=== PATIENT | female | born 1945 | race Caucasian/White ===

== ENCOUNTER → 2017-07-19 08:29 | Outpatient (CLI) | payer OTHER, SELFPAY ==
[2017-07-19 09:53] LABS: Add Manual Diff / Slide Review NO; Basophils Percent Auto 0.7 % (0-2); Eosinophils Percent Auto 2.2 % (2-4); Hematocrit 38.5 % (36-46); Hemoglobin 13.1 g/dL (12.0-16.0); Lymphocytes Percent Auto 20.4 % (25-40); Mean Corpuscular HGB Conc 34.1 % (30-36); Mean Corpuscular Hemoglobin 33.5 PG (26-34); Mean Corpuscular Volume 98.2 fL (80-100); Monocytes Percent Auto 9.3 % (3-14); Neutrophils Absolute Auto 2400 /uL (3000-5900); Neutrophils Percent Auto 67.4 % (50-75); Platelet Count 166 X10^3/uL (150-400); Red Blood Cell Count 3.92 X10^6/uL (4.0-5.2); Red Cell Distribution Width 13.2 % (11.6-14.8); White Blood Cell Count 3.6 X10^3/uL (4.5-11.0)
[2017-07-19 11:30] LABS: Cholesterol 237 mg/dL (140-199); HDL Cholesterol 77 mg/dL (40-60); LDL Cholesterol Calculated 142 mg/dL (<100); Triglycerides 91 mg/dL (35-150)
[2017-07-19 11:56] LABS: TSH w/ Reflex to FT4 0.88 uIU/mL (0.47-4.68)
== END ==
PROVIDERS: Family Provider Family Medicine; PCP Family Medicine; Visit Provider Family Medicine
DX: E78.5 Hyperlipidemia, unspecified (principal)
CPT/HCPCS: 36415; 80061; 84443; 85025

== ENCOUNTER → 2017-09-21 10:56 | Outpatient (CLI) | payer OTHER, SELFPAY ==
[2017-09-21 11:15] LABS: Add Manual Diff / Slide Review NO; Basophils Percent Auto 0.8 % (0-2); Eosinophils Percent Auto 1.6 % (2-4); Hematocrit 41.1 % (36-46); Hemoglobin 14.3 g/dL (12.0-16.0); Lymphocytes Percent Auto 22.6 % (25-40); Mean Corpuscular HGB Conc 34.7 % (30-36); Monocytes Percent Auto 10.4 % (3-14); Neutrophils Absolute Auto 2600 /uL (3000-5900); Neutrophils Percent Auto 64.6 % (50-75); Platelet Count 202 X10^3/uL (150-400); Red Cell Distribution Width 12.9 % (11.6-14.8)
[2017-09-21 11:27] LABS: Alanine Aminotransferase 39 IU/L (9-52); Albumin 4.8 g/dL (3.5-5.0); Albumin Globulin Ratio 1.8 (1.0-2.8); Alkaline Phosphatase 58 U/L (38-126); Aspartate Aminotransferase 36 IU/L (14-36); BUN Creatinine Ratio 23.8 (6-22); Bilirubin Total 0.7 mg/dL (0.2-1.3); Blood Urea Nitrogen 19 mg/dL (7-17); Calcium 9.8 mg/dL (8.4-10.2); Carbon Dioxide 27 mmol/L (22-32); Chloride 102 mmol/L (98-107); Estimated Glomerular Filt Rate > 60.0 mL/min (>60); Globulin 2.6 g/dL (1.7-4.1); Glucose 95 mg/dL (80-110); HEMOLYSIS < 15 (0-50); Lactate Dehydrogenase 413 U/L (313-618); Potassium 4.5 mmol/L (3.4-5.1); Sodium 141 mmol/L (137-145); Total Protein 7.4 g/dL (6.3-8.2)
== END ==
PROVIDERS: Family Provider Family Medicine; PCP Family Medicine; Visit Provider Nurse Practitioner Gerontology
DX: C91.10 Chronic lymphocytic leukemia of B-cell type not having achieved remission (principal)
CPT/HCPCS: 36415; 80053; 83615; 85025

== ENCOUNTER 2017-12-19 10:28 | Day surgery (SDC) | payer OTHER, SELFPAY ==
[2017-12-19] VITALS (7 sets, daily range): BP systolic 137–160; BP diastolic 71–92; PULSE 60–71; RESP 12–16; TEMP 36.1–36.6; O2SAT 97–100; BMI 24.7
--- NOTE | 2017-12-19 | PATH_ITS ---
[facility] Accession Number: [id number] . 01 Material submitted: . POLYP AT 40 . 02 Diagnosis: Colon Polyp at 40 cm: Tubular adenoma. MRV/12/21/2017 . 02 Electronically signed: . Sumeet Rossi MD, PhD, Pathologist NPI- [id number] . 01 Gross description: . POLYP AT 40: Received in formalin is 1 fragment(s) of julien, soft tissue measuring 0.5 x 0.3 x 0.3 cm submitted entirely in 1 cassette(s) /CKI /CKI . 02 Pathologist provided ICD-10: D12.6 . 02 CPT . 540540 Specimen Comment: A duplicate report has been generated due to demographic updates. Performed at: 01 [facility] [address] [id number] MD Francis Walters MD Phone: [phone] Performed at: 02 [facility] [address] [place], [place] [id number] MD Ramiro Crockett MD Phone: [phone]
[2017-12-19] MEDS: SODIUM CHLORIDE 0.9% 1,000 ML 84 ML IV (10:45)
--- NOTE | 2017-12-19 12:18 | PM.HP.1 ---
History of Present Illness Date Patient Seen: 12/19/17 Chief complaint: [id number] SCREENING COLONOSCOPY Narrative: Here for interval colon cancer screening colonoscopy. Previous colonoscopy 10 yrs ago. No polyps seen, no problems with anesthesia. Completed prep without any difficulty. No complaints of abdominal pain, bloating, chronic constipation, change in caliber of stools, melena, blood per rectum. Father had colon cancer. Patient History Family & Social History Social History: household members none Tobacco & Substance use: Smoking Status Former smoker alcohol intake current Meds Home Medications Medication Instructions Recorded Confirmed Type CA PANTOTHENATE/FOLIC ACID/VIT 1 tab PO QDAY #0 09/28/12 12/19/17 History (MULTIVITAMIN) Fish Oil (Fish Oil 500 MG Softgel) 500 mg PO QDAY #0 09/28/12 12/19/17 History [B COMPLEX] 1 tab PO Q DAY #0 09/28/12 09/28/17 History [GREEN TEA EXTRACT] 500 iu Q DAY #0 09/28/12 09/28/17 History [BITTERS] 1 tab PO Q DAY #0 05/04/16 07/25/17 History [MUSHROOM SUPPLEMENT] 1 tab PO Q DAY #0 05/04/16 07/25/17 History biotin 5 mg PO Q DAY #0 04/14/17 12/19/17 History varicella-zoster glycoE vacc-[id number] 0.5 ml IM ONCE #1 each 07/25/17 09/28/17 Rx adj(PF) 50 mcg/0.5 mL IM susp, kit Tumeric 1 tab PO QAM 09/28/17 09/28/17 History cholecalciferol (vitamin D3) 4,000 unit PO DAILY 09/28/17 12/19/17 History [Vitamin D3] cranberry juice PO 09/28/17 History lutein 6 mg PO DAILY 09/28/17 09/28/17 History bupropion HCl [Wellbutrin SR] 100 mg PO DAILY 12/19/17 12/19/17 History Allergies Allergy/AdvReac Type Severity Reaction Status Date / Time fig AdvReac Mild Nausea Uncoded 09/28/17 12:47 Review of Systems Review of Systems All systems reviewed & are unremarkable except as noted in HPI and below Exam Vital Signs (past 8 hours): - 12/19/17 10:48 Temperature 97.0 F L Pulse Rate 71 Respiratory Rate 16 Blood Pressure 142/77 H Pulse Oximetry 97 Oxygen Delivery Method Room Air Const General: cooperative, healthy appearing, comfortable and well developed HENSC Head: normal to inspection Eyes Sclera: sclerae normal Neck Neck: supple Chest Chest: normal inspection of the chest Resp Effort & Inspection: normal respiratory effort Cardio Rate: regular rate GI Inspection: normal to inspection Palpation: soft Skin General: no rashes or lesions noted Neuro General: alert, awake and moves all extremities Extrem General: normal to inspection Psych Appearance: grossly normal and well tawanampt Assessment & Plan Plan: Assessment/Plan Narrative: Colon cancer screening colonoscopy Time Spent With Patient Time with patient: 25 - 35 minutes
--- NOTE | 2017-12-19 12:23 | P.HP_ITS ---
History of Present Illness Date Patient Seen: 12/19/17 Chief complaint: [id number] SCREENING COLONOSCOPY Narrative: Here for interval colon cancer screening colonoscopy. Previous colonoscopy 10 yrs ago. No polyps seen, no problems with anesthesia. Completed prep without any difficulty. No complaints of abdominal pain, bloating, chronic constipation, change in caliber of stools, melena, blood per rectum. Father had colon cancer. Patient History Family & Social History Social History: household members none Tobacco & Substance use: Smoking Status Former smoker alcohol intake current Meds Home Medications Medication Instructions Recorded Confirmed Type CA PANTOTHENATE/FOLIC ACID/VIT 1 tab PO QDAY #0 09/28/12 12/19/17 History (MULTIVITAMIN) Fish Oil (Fish Oil 500 MG Softgel) 500 mg PO QDAY #0 09/28/12 12/19/17 History [B COMPLEX] 1 tab PO Q DAY #0 09/28/12 09/28/17 History [GREEN TEA EXTRACT] 500 iu Q DAY #0 09/28/12 09/28/17 History [BITTERS] 1 tab PO Q DAY #0 05/04/16 07/25/17 History [MUSHROOM SUPPLEMENT] 1 tab PO Q DAY #0 05/04/16 07/25/17 History biotin 5 mg PO Q DAY #0 04/14/17 12/19/17 History varicella-zoster glycoE vacc-[id number] 0.5 ml IM ONCE #1 each 07/25/17 09/28/17 Rx adj(PF) 50 mcg/0.5 mL IM susp, kit Tumeric 1 tab PO QAM 09/28/17 09/28/17 History cholecalciferol (vitamin D3) 4,000 unit PO DAILY 09/28/17 12/19/17 History [Vitamin D3] cranberry juice PO 09/28/17 History lutein 6 mg PO DAILY 09/28/17 09/28/17 History bupropion HCl [Wellbutrin SR] 100 mg PO DAILY 12/19/17 12/19/17 History Allergies Allergy/AdvReac Type Severity Reaction Status Date / Time fig AdvReac Mild Nausea Uncoded 09/28/17 12:47 Review of Systems Review of Systems All systems reviewed & are unremarkable except as noted in HPI and below Exam Vital Signs (past 8 hours): - 12/19/17 10:48 Temperature 97.0 F L Pulse Rate 71 Respiratory Rate 16 Blood Pressure 142/77 H Pulse Oximetry 97 Oxygen Delivery Method Room Air Const General: cooperative, healthy appearing, comfortable and well developed HENNC Head: normal to inspection Eyes Sclera: sclerae normal Neck Neck: supple Chest Chest: normal inspection of the chest Resp Effort & Inspection: normal respiratory effort Cardio Rate: regular rate GI Inspection: normal to inspection Palpation: soft Skin General: no rashes or lesions noted Neuro General: alert, awake and moves all extremities Extrem General: normal to inspection Psych Appearance: grossly normal and well tawanampt Assessment & Plan Plan: Assessment/Plan Narrative: Colon cancer screening colonoscopy Time Spent With Patient Time with patient: 25 - 35 minutes
[2017-12-19] MEDS: diphenhydrAMINE 50 MG/ML VIAL IV (12:56)
[2017-12-19] MEDS: fentaNYL 250 MCG/5 ML INJ IV (12:57)
[2017-12-19] MEDS: MIDAZOLAM 5 MG/5 ML VIAL IV (12:58)
--- NOTE | 2017-12-19 13:21 | P.OP.ENDO_ITS ---
Operative Date/Time/Diagnoses Date of procedure: 12/19/17 Pre-op diagnosis: Colon Cancer Screening Post-op diagnosis: same Procedure & Clinicians Study performed: Colonoscopy with polypectomy Indications: Colon cancer screening Surgeon: Tesfaye Cat Procedure Notes SCOAP/Timeout: performed Procedure in detail: Patient taken from preoperative area to endoscopy suite with adequate iv access on guerny. Timeout was performed. IV sedation sedation was titrated throughout the case while patient was continuously monitored. Inspection of anal orifice revealed no lesions. Digital exam failed to palpate any lesions. A well lubricated Fuji colonoscope was gently introduced through the anus and advanced to the cecum using the dither-torque technique. Confirmation of reaching the cecum was acheived by identifying the appendiceal orifice and ileocecal valve. A raised polyp was identified at 40cm in distal sigmoid colon and polypectomy was performed with biopsy forcepts. Retroflexion of the endoscope in lower third of rectum could not be performed due to inability for the rectum to retain insufflation. Patient tolerated procedure well and was transferred to PACU in stable condition. Recommend high fiber diet, metamucil supplementation daily, follow up in surgical clinic regarding polyp pathology results. Repeat interval colon cancer screening in 5 years or sooner if indicated by pathology. Scope withdrawal time: 9 minutes Sedation minutes: 35 Findings: polyp (at 40cm, distal sigmoid colon) Specimen(s): none sent (colon polyp) Complications: none Recommendations: Colonscopy in 5 years Follow up: weeks (1-2 weeks to review polyp pathology results in surgical clinic ) Disposition: PACU
--- NOTE | 2017-12-19 13:27 | SUR.PHASEI ---
Unifocal PVCs intermittently seen.
--- NOTE | 2017-12-19 14:39 | SUR.PHASEII ---
pt slow to wake up, friend at bedside d/c instructions discussed with both, both voiced an understanding, pt dressed when ready and left when ready and left in stable condition.
== END 2017-12-19 14:25 | disposition home or self-care (01) ==
PROVIDERS: Family Provider Family Medicine; PCP Family Medicine; Visit Provider Surgery
PROC: 0DJD8ZZ Inspection of Lower Intestinal Tract, Via Natural or Artificial Opening Endoscopic (ICD-10-PCS; CPT 45378; principal; 2017-12-19 11:45)
DX: Z12.11 Encounter for screening for malignant neoplasm of colon (principal); Z87.891 Personal history of nicotine dependence; D12.6 Benign neoplasm of colon, unspecified
CPT/HCPCS: 45380; 99152; 99153; J1200; J2250; J3010

== ENCOUNTER → 2018-04-19 09:01 | Outpatient (CLI) | payer OTHER, SELFPAY ==
[2018-04-19 10:09] LABS: Add Manual Diff / Slide Review NO; Basophils Absolute Auto 0 /uL (0-100); Basophils Percent Auto 0.5 % (0-2); Eosinophils Absolute Auto 100 /uL (0-450); Hematocrit 42.8 % (36-46); Hemoglobin 14.2 g/dL (12.0-16.0); Lymphocytes Absolute Auto 700 /uL (1100-4500); Lymphocytes Percent Auto 16.3 % (25-40); Mean Corpuscular HGB Conc 33.1 % (30-36); Mean Corpuscular Hemoglobin 32.1 PG (26-34); Monocytes Absolute Auto 400 /uL (0-900); Neutrophils Absolute Auto 3100 /uL (1500-7000); Neutrophils Percent Auto 72.2 % (50-75); Platelet Count 212 X10^3/uL (150-400); Red Blood Cell Count 4.41 X10^6/uL (4.0-5.2); Red Cell Distribution Width 13.3 % (11.6-14.8); White Blood Cell Count 4.3 X10^3/uL (4.5-11.0)
[2018-04-19 10:33] LABS: Alanine Aminotransferase 44 IU/L (9-52); Albumin 4.7 g/dL (3.5-5.0); Albumin Globulin Ratio 1.8 (1.0-2.8); Alkaline Phosphatase 60 U/L (38-126); Aspartate Aminotransferase 30 IU/L (14-36); BUN Creatinine Ratio 21.4 (6-22); Bilirubin Total 0.3 mg/dL (0.2-1.3); Blood Urea Nitrogen 15 mg/dL (7-17); Calcium 9.9 mg/dL (8.4-10.2); Carbon Dioxide 31 mmol/L (22-32); Chloride 101 mmol/L (98-107); Estimated Glomerular Filt Rate > 60.0 mL/min (>60); Globulin 2.6 g/dL (1.7-4.1); Glucose 58 mg/dL (80-110); HEMOLYSIS < 15 (0-50); Lactate Dehydrogenase 405 U/L (313-618); Potassium 4.5 mmol/L (3.4-5.1); Sodium 140 mmol/L (137-145); Total Protein 7.3 g/dL (6.3-8.2)
== END ==
PROVIDERS: Family Provider Family Medicine; PCP Family Medicine; Visit Provider Nurse Practitioner Gerontology
DX: C91.90 Lymphoid leukemia, unspecified not having achieved remission (principal)
CPT/HCPCS: 36415; 80053; 83615; 85025

== ENCOUNTER → 2018-07-20 07:25 | Outpatient (CLI) | payer OTHER, SELFPAY ==
[2018-07-20 08:33] LABS: Add Manual Diff / Slide Review NO; Basophils Absolute Auto 0 /uL (0-100); Basophils Percent Auto 0.8 % (0-2); Eosinophils Absolute Auto 100 /uL (0-450); Eosinophils Percent Auto 2.4 % (2-4); Hematocrit 41.8 % (36-46); Hemoglobin 14.1 g/dL (12.0-16.0); Lymphocytes Absolute Auto 800 /uL (1100-4500); Lymphocytes Percent Auto 20.2 % (25-40); Mean Corpuscular HGB Conc 33.8 % (30-36); Mean Corpuscular Hemoglobin 32.4 PG (26-34); Mean Corpuscular Volume 95.8 fL (80-100); Monocytes Absolute Auto 300 /uL (0-900); Monocytes Percent Auto 9.3 % (3-14); Neutrophils Absolute Auto 2500 /uL (1500-7000); Neutrophils Percent Auto 67.3 % (50-75); Platelet Count 181 X10^3/uL (150-400); Red Blood Cell Count 4.37 X10^6/uL (4.0-5.2); Red Cell Distribution Width 13.4 % (11.6-14.8); White Blood Cell Count 3.7 X10^3/uL (4.5-11.0)
[2018-07-20 08:50] LABS: Alanine Aminotransferase 31 IU/L (9-52); Albumin 4.4 g/dL (3.5-5.0); Albumin Globulin Ratio 1.6 (1.0-2.8); Alkaline Phosphatase 54 U/L (38-126); Aspartate Aminotransferase 36 IU/L (14-36); BUN Creatinine Ratio 27.5 (6-22); Bilirubin Total 0.4 mg/dL (0.2-1.3); Blood Urea Nitrogen 22 mg/dL (7-17); Calcium 9.4 mg/dL (8.4-10.2); Carbon Dioxide 32 mmol/L (22-32); Chloride 102 mmol/L (98-107); Cholesterol 248 mg/dL (140-199); Estimated Glomerular Filt Rate > 60.0 mL/min (>60); Globulin 2.8 g/dL (1.7-4.1); Glucose 91 mg/dL (80-110); HDL Cholesterol 76 mg/dL (40-60); HEMOLYSIS < 15 (0-50); LDL Cholesterol Calculated 154 mg/dL (<100); Potassium 4.1 mmol/L (3.4-5.1); Sodium 141 mmol/L (137-145); Total Protein 7.2 g/dL (6.3-8.2); Triglycerides 91 mg/dL (35-150)
[2018-07-20 09:16] LABS: TSH w/ Reflex to FT4 1.28 uIU/mL (0.47-4.68)
== END ==
PROVIDERS: PCP Family Medicine; Visit Provider Family Medicine
DX: C91.90 Lymphoid leukemia, unspecified not having achieved remission (principal); E78.5 Hyperlipidemia, unspecified; Z13.6 Encounter for screening for cardiovascular disorders
CPT/HCPCS: 36415; 80053; 80061; 84443; 85025

== ENCOUNTER → 2018-08-11 12:08 | Outpatient (CLI) | payer OTHER, SELFPAY ==
--- NOTE | 2018-08-11 | DI.MG.S_ITS ---
BILATERAL DIGITAL SCREENING MAMMOGRAM 3D/2D WITH CAD: 08/11/2018 CLINICAL: Routine screening. Family history of breast cancer. Comparison is made to exams dated: 01/26/2017 mammogram, 01/07/2016 mammogram, and 08/13/2014 mammogram - [facility]. The tissue of both breasts is heterogeneously dense. This may lower the sensitivity of mammography. Current study was also evaluated with a Computer Aided Detection (CAD) system. There is architectural distortion in the right breast at 11 o'clock middle depth. This is more prominent. No other significant masses, calcifications, or other findings are seen in either breast. IMPRESSION: INCOMPLETE: NEEDS ADDITIONAL IMAGING EVALUATION The architectural distortion in the right breast is indeterminate. Additional views with possible ultrasound are recommended. This exam was interpreted at Station ID: [id number]. NOTE: For mammograms, a report in lay terms will be sent to the patient. Approximately 15% of breast malignancies will not be visualized mammographically. In the management of a palpable breast mass, a negative mammogram must not discourage biopsy of a clinically suspicious lesion. Electronically Signed By: Love maciel/:08/11/2018 20:38:09 letter sent: Additional Imaging Needed ACR BI-RADS Category 0: Incomplete [id number]
== END ==
PROVIDERS: PCP Family Medicine; Visit Provider Family Medicine
DX: M85.80 Other specified disorders of bone density and structure, unspecified site (principal); M85.88 Other specified disorders of bone density and structure, other site; R92.8 Other abnormal and inconclusive findings on diagnostic imaging of breast; Z78.0 Asymptomatic menopausal state; Z12.31 Encounter for screening mammogram for malignant neoplasm of breast; Z80.3 Family history of malignant neoplasm of breast
CPT/HCPCS: 77063; 77067; 77080

== ENCOUNTER → 2018-08-31 13:18 | Outpatient (CLI) | payer OTHER, SELFPAY ==
--- NOTE | 2018-08-31 | DI.MG.S_ITS ---
UNILATERAL RIGHT DIGITAL DIAGNOSTIC MAMMOGRAM 3D/2D WITH ADDITIONAL VIEWS: 08/31/2018 CLINICAL: Additional evaluation requested from prior study. Comparison is made to exams dated: 08/11/2018 mammogram, 01/26/2017 mammogram, and 01/07/2016 mammogram - [facility]. The tissue of right breast is heterogeneously dense. This may lower the sensitivity of mammography. There is architectural distortion in the right breast at 11 o'clock middle depth. This is less prominent and decreased in size and possibly persists on today's additional views. No other significant masses or calcifications are seen in the breast. IMPRESSION: INCOMPLETE: NEEDS ADDITIONAL IMAGING EVALUATION The architectural distortion in the right breast is indeterminate. Further evaluation by sonogram is recommended which is scheduled to immediately follow this examination. This exam was interpreted at Station ID: [id number]. NOTE: For mammograms, a report in lay terms will be sent to the patient. Approximately 15% of breast malignancies will not be visualized mammographically. In the management of a palpable breast mass, a negative mammogram must not discourage biopsy of a clinically suspicious lesion. Electronically Signed By: Olaf Orosco M.D. aty/:08/31/2018 14:07:19 ACR BI-RADS Category 0: Incomplete [id number]
--- NOTE | 2018-08-31 13:19 | DI.US.S_ITS ---
ULTRASOUND OF RIGHT BREAST: 08/31/2018 CLINICAL: Patient returns today to evaluate an architectural distortion in the right breast. Comparison is made to exams dated: 08/31/2018 mammogram, 08/11/2018 mammogram, 01/26/2017 mammogram, and 01/07/2016 mammogram - [facility]. Real-time ultrasound of the right breast was performed. Iraheta scale images of the real-time examination were reviewed. No abnormalities were seen sonographically in the right breast. IMPRESSION: PROBABLY BENIGN There is no abnormality seen in the right breast to correspond with the possible area of subtle architectural distortion seen in the upper outer right breast. Mammographic appearance has been relatively stable. A follow-up right mammogram with possible ultrasound in 6 months is recommended to demonstrate stability. This exam was interpreted at Station ID: [id number]. Electronically Signed By: Olaf Orosco M.D. aty/:08/31/2018 15:29:33 letter sent: Followup Recommended Ultrasound BI-RADS: 3 Probably benign
== END ==
PROVIDERS: PCP Family Medicine; Visit Provider Family Medicine
DX: R92.8 Other abnormal and inconclusive findings on diagnostic imaging of breast (principal)
CPT/HCPCS: 76642; 77065; G0279

== ENCOUNTER → 2019-03-07 14:33 | Outpatient (CLI) | payer OTHER, SELFPAY ==
--- NOTE | 2019-03-07 | DI.MG.S_ITS ---
UNILATERAL RIGHT DIGITAL DIAGNOSTIC MAMMOGRAM 3D/2D SHORT-TERM FOLLOW-UP: 03/07/2019 CLINICAL: Patient returns for a 6 month follow up of the right breast. Comparison is made to exams dated: 08/31/2018 mammogram, 08/11/2018 mammogram, 01/26/2017 mammogram, 01/07/2016 mammogram, and 08/13/2014 mammogram - [facility]. The tissue of right breast is heterogeneously dense. This may lower the sensitivity of mammography. There is a stable area of architectural distortion in the right breast at 11 o'clock middle depth. This is not significantly changed over multiple prior studies. No new associated asymmetry. No other significant masses or calcifications are seen in the breast. IMPRESSION: The architectural distortion in the right breast is stable and therefore benign. There is no mammographic evidence of malignancy. Return to annual mammogram screening schedule is recommended. Findings and recommendations were conveyed to the patient at time of exam. This exam was interpreted at Station ID: [id number]. NOTE: For mammograms, a report in lay terms will be sent to the patient. Approximately 15% of breast malignancies will not be visualized mammographically. In the management of a palpable breast mass, a negative mammogram must not discourage biopsy of a clinically suspicious lesion. Electronically Signed By: Love maciel/:03/07/2019 15:40:58 letter sent: Normal Exam ACR BI-RADS Category 2: Benign Finding(s) 3342F
== END ==
PROVIDERS: PCP Family Medicine; Visit Provider Family Medicine
DX: R92.8 Other abnormal and inconclusive findings on diagnostic imaging of breast (principal)
CPT/HCPCS: 77065; G0279

== ENCOUNTER → 2019-04-12 08:06 | Outpatient (CLI) | payer OTHER, SELFPAY ==
[2019-04-12 08:29] LABS: Add Manual Diff / Slide Review NO; Basophils Absolute Auto 0 /uL (0-100); Basophils Percent Auto 0.7 % (0-2); Eosinophils Absolute Auto 100 /uL (0-450); Eosinophils Percent Auto 1.6 % (2-4); Hematocrit 40.8 % (36-46); Lymphocytes Absolute Auto 600 /uL (1100-4500); Lymphocytes Percent Auto 16.5 % (25-40); Mean Corpuscular HGB Conc 34.4 % (30-36); Mean Corpuscular Hemoglobin 32.5 PG (26-34); Mean Corpuscular Volume 94.4 fL (80-100); Monocytes Absolute Auto 400 /uL (0-900); Monocytes Percent Auto 10.1 % (3-14); Neutrophils Absolute Auto 2600 /uL (1500-7000); Neutrophils Percent Auto 71.1 % (50-75); Platelet Count 195 X10^3/uL (150-400); Red Blood Cell Count 4.32 X10^6/uL (4.0-5.2); Red Cell Distribution Width 12.8 % (11.6-14.8); White Blood Cell Count 3.7 X10^3/uL (4.5-11.0)
[2019-04-12 08:40] LABS: Alanine Aminotransferase 37 IU/L (<35); Albumin 4.6 g/dL (3.5-5.0); Albumin Globulin Ratio 1.6 (1.0-2.8); Alkaline Phosphatase 57 U/L (38-126); Aspartate Aminotransferase 37 IU/L (14-36); BUN Creatinine Ratio 27.1 (6-22); Bilirubin Total 0.4 mg/dL (0.2-1.3); Blood Urea Nitrogen 19 mg/dL (7-17); Calcium 9.8 mg/dL (8.4-10.2); Carbon Dioxide 26 mmol/L (22-32); Chloride 105 mmol/L (98-107); Estimated Glomerular Filt Rate > 60.0 mL/min (>60); Globulin 2.9 g/dL (1.7-4.1); Glucose 93 mg/dL (80-110); HEMOLYSIS < 15 (0-50); Lactate Dehydrogenase 383 U/L (313-618); Potassium 4.4 mmol/L (3.4-5.1); Sodium 140 mmol/L (137-145); Total Protein 7.5 g/dL (6.3-8.2)
[2019-04-12 09:18] LABS: Cholesterol 244 mg/dL (140-199); HDL Cholesterol 71 mg/dL (40-60); LDL Cholesterol Calculated 153 mg/dL (<100); Triglycerides 102 mg/dL (35-150)
[2019-04-12 09:34] LABS: Vitamin D 25 Hydroxy (D3) 57.1 ng/mL (30.0-100.0)
[2019-04-12 09:51] LABS: Thyroid Stimulating Hormone 1.09 uIU/mL (0.47-4.68)
[2019-04-12 10:24] LABS: Folate > 20.0 ng/mL (2.76-20.0); Vitamin B12 > 1000 pg/mL (239-931)
[2019-04-14 13:33] LABS: Immunoglobulin A 92 mg/dL (70-320); Immunoglobulin G, Quantitative 742 mg/dL (600-1540); Immunoglobulin M, Quantitative 65 mg/dL (50-300)
== END ==
PROVIDERS: Internal Medicine Hematology & Oncology; PCP Family Medicine; Referring Provider Family Medicine; Visit Provider Family Medicine
DX: C91.11 Chronic lymphocytic leukemia of B-cell type in remission (principal); C91.90 Lymphoid leukemia, unspecified not having achieved remission; F41.8 Other specified anxiety disorders
CPT/HCPCS: 36415; 80053; 80061; 82232; 82306; 82607; 82746; 82784; 83615; 84443; 85025

== ENCOUNTER → 2019-08-20 08:16 | Outpatient (CLI) | payer OTHER, SELFPAY ==
--- NOTE | 2019-08-20 08:30 | DI.MG.S_ITS ---
Patient Name: NORA ROUSSEAU date: 1945 Sex: F Attending Physician: Simeon Indications: Date: 08/20/2019 08:22 At the request of: FABY DEMPSEY Procedure: MM screening mammo BI BILATERAL DIGITAL SCREENING MAMMOGRAM 3D/2D WITH CAD: 08/20/2019 CLINICAL: Routine screening. Family history of breast cancer. Comparison is made to exams dated: 03/07/2019 mammogram, 08/31/2018 mammogram, and 08/11/2018 mammogram - [facility]. The tissue of both breasts is heterogeneously dense. This may lower the sensitivity of mammography. Current study was also evaluated with a Computer Aided Detection (CAD) system. No significant masses, calcifications, or other findings are seen in either breast. There has been no significant interval change. IMPRESSION: NEGATIVE There is no mammographic evidence of malignancy. A 1 year screening mammogram is recommended. This exam was interpreted at Station ID: [id number]. NOTE: For mammograms, a report in lay terms will be sent to the patient. Approximately 15% of breast malignancies will not be visualized mammographically. In the management of a palpable breast mass, a negative mammogram must not discourage biopsy of a clinically suspicious lesion. Electronically Signed By: Juan Lopez M.D., jr/amarilys:08/20/2019 09:57:19 letter sent: Normal Exam ACR BI-RADS Category 1: Negative 3341F
== END ==
PROVIDERS: PCP Family Medicine; Referring Provider Family Medicine; Visit Provider Family Medicine
DX: Z12.31 Encounter for screening mammogram for malignant neoplasm of breast (principal); Z80.3 Family history of malignant neoplasm of breast
CPT/HCPCS: 77063; 77067

== ENCOUNTER → 2020-03-11 13:57 | Outpatient (CLI) | payer MEDICARE, SELFPAY ==
[2020-03-11] MEDS: COVID-19 VACC #1, MRNA(MOD) 100 MCG/0.5 ML VIAL IM (14:08)
== END ==
PROVIDERS: PCP Family Medicine; Visit Provider Internal Medicine
DX: Z23 Encounter for immunization (principal)
CPT/HCPCS: 0011A; 91301

== ENCOUNTER → 2020-03-20 10:40 | Oncology outpatient (ONC) | payer OTHER, SELFPAY ==
--- NOTE | 2017-09-28 11:46 | P.PNONC_ITS ---
Assessment and Plan (1) Chronic lymphocytic leukemia Current visit: Yes Status: Acute 09/28/17 11:49 The patient is a 72-year-old female who carries a diagnosis of CLL. She is currently 4 years out from her original diagnosis. On exam today she has no clinical signs or symptoms to suggest disease recurrence. Additionally, CBC and CMP are unremarkable. LDH within normal limits. Return to clinic in 6 months for provider visit CBC CMP LDH. Patient is up-to-date with her annual bilateral screening mammograms. She is due for her colonoscopy, this was discussed with her primary care provider which at her wellness visit last month. She will go ahead and schedule. - Time Spent with Patient 25 mins PN -Subjective Interval history: The patient is a 72 year old Female who is being seen in the clinic 09/28/2017. She carries a diagnosis of CLL p53 mutation positive. Patient remains in a clinical remission/surveillance since obtaining a complete response after 5 cycles of FCR therapy last administered in August 2013. Patient presents for her 6 month interval follow-up. She has no new complaints whatsoever on exam today. She denies night sweats. Activity tolerance is quite good. Appetite is stable. No change with bladder or bowel habits. No new pain. No new lumps or bumps. No unexplained bleeding or bruising. She had Wellness visit with her primary care provider last month. She is not taking any new medications. She has not had any illnesses or infections in the past 12 months. Past Medical History The patient's past medical history is significant for: 1) chronic lymphocytic leukemia Diagnosis: 06/01/2012. Bone marrow biopsy. Pathology reporting extensive (70%) marrow involvement with CD20 positive B-cell distributed no focal sheet like proliferation pattern. Molecular study showing negativity for cyclin D1 and BCL 6. Fish identifying a deletion 13q, loss of p53. Flow cytometry from aspirate identifying a B-cell population positive for CD5 (very little), CD10, CD19, CD20 (moderate) and FMC 7 with lambda light chain restriction. Negative for CD23 and CD38. Clinical staging workup, pretreatment: 06/21/2012. CT of the chest abdomen pelvis. No pathologically enlarged lymph nodes. A nonspecific hilar lymph node was identified measuring 5 mm. Incidental hepatic steatosis noted. Clinical presentation: 05/16/2012. Low-grade fatigue. Baseline CBC reporting a white cell count 17.7 with an absolute lymphocyte count of 15,930. Prognosis: BERRIOS stage I High-risk markers includes deletion p53. First-line therapy: Indication was increasing white blood cell count peaking on 04/06/2013 at 45, 400. 05/02/2013-08/31/2013. FCR ?5 cycles. Patient subsequently completed 5 cycles of FCR chemotherapy in August 2013. Restaging workup: 09/18/2013. Bone marrow biopsy with aspirate. No evidence microscopic evidence of CLL or flow cytometry. FISH panel for CLL was negative. Specifically no evidence of a 13 every deletion or 17 deletion. Surveillance: 01/31/2014. Peripheral flow cytometry. No evidence of CLL. Results - Imaging Additional studies: Procedures Incision with removal of foreign body or device from skin and subcutaneous tissue (11/08/13) Insertion of totally implantable vascular access device [VAD] (04/26/13) Other soft tissue x-ray of chest wall (04/26/13) Home Medications and Allergies Home Medications Medication Instructions Recorded Confirmed Type CA PANTOTHENATE/FOLIC ACID/VIT 1 tab PO QDAY #0 09/28/12 07/25/17 History (MULTIVITAMIN) Fish Oil (Fish Oil 500 MG Softgel) PO QDAY #0 09/28/12 07/25/17 History [B COMPLEX] Q DAY #0 09/28/12 07/25/17 History [GREEN TEA EXTRACT] 500 iu Q DAY #0 09/28/12 07/25/17 History [BITTERS] Q DAY #0 05/04/16 07/25/17 History [MUSHROOM SUPPLEMENT] Q DAY #0 05/04/16 07/25/17 History escitalopram oxalate [Lexapro] 5 mg PO QDAY #30 tab 11/01/16 07/25/17 Rx biotin 5 mg PO Q DAY #0 04/14/17 07/25/17 History bupropion HCl SR 100 mg tablet,12 100 mg PO Q12H #60 tab 07/25/17 Rx hr sustained-release milk thistle 150 mg capsule 300 mg PO DAILY 07/25/17 07/25/17 History varicella-zoster glycoE [id number] 0.5 ml IM ONCE #1 each 07/25/17 07/25/17 Rx adj(PF) 50 mcg/0.5 mL IM susp, kit Allergies Allergy/AdvReac Type Severity Reaction Status Date / Time No Known Drug Allergies Allergy Unknown Unverified 07/25/17 09:40 [NO KNOWN DRUG ALLERGIES] figs AdvReac Mild nausea Uncoded 07/25/17 09:40 Exam - Constitutional positive no acute distress, positive average body habitus - Routine HEENT Exam ENT: Present: mucous membranes moist, oropharynx clear - Routine Neck Exam Present: supple. Absent: lymphadenopathy - Routine Respiratory Exam Present: Clear to auscultation bilaterally. Absent: rales, rhonchi, wheezes - Routine Cardiovascular Exam Present: RRR, S1, S2. Absent: murmur, gallop, rubs, JVD - Routine Abdominal Exam Present: soft, normoactive bowel sounds. Absent: tenderness, distended, organomegaly, mass - Routine Extremities Exam Absent: edema, calf tenderness - Routine Skin Exam Present: intact, normal turgor. Absent: petechiae, rash - Routine Neurological Exam Present: alert, oriented X3 - Routine Psychiatric Exam Present: normal affect
[2017-09-28 12:41] VITALS: BP 124/68; PULSE 70; RESP 15; TEMP 37; O2SAT 98
[2018-04-24 11:17] VITALS: BP 138/82; PULSE 62; RESP 18; TEMP 36.8; O2SAT 99
--- NOTE | 2018-04-24 11:28 | P.PNONC_ITS ---
PN -Subjective Interval history: The patient is a 73 year old female with diagnosis of CLL p53 mutation positive. Patient remains in a clinical remission/surveillance since obtaining a complete response after 5 cycles of FCR therapy last administered in August 2013. Patient presents for her 6 month interval follow-up. She reports good appetite. No fever, no night sweats. No weight loss. No SOB, no CP. No abdominal pain. No blood in the stool. She had C-scope by Dr. Tesfaye Cat. A polyp at 45 cm was removed and was tubular adenoma/ Onological History: (1) Chronic lymphocytic leukemia Diagnosis: 06/01/2012. Bone marrow biopsy. Pathology reporting extensive (70%) marrow involvement with CD20 positive B-cell distributed no focal sheet like proliferation pattern. Molecular study showing negativity for cyclin D1 and BCL 6. Fish identifying a deletion 13q, loss of p53. Flow cytometry from aspirate identifying a B-cell population positive for CD5 (very little), CD10, CD19, CD20 (moderate) and FMC 7 with lambda light chain restriction. Negative for CD23 and CD38. Clinical staging workup, pretreatment: 06/21/2012. CT of the chest abdomen pelvis. No pathologically enlarged lymph nodes. A nonspecific hilar lymph node was identified measuring 5 mm. Incidental hepatic steatosis noted. Clinical presentation: 05/16/2012. Low-grade fatigue. Baseline CBC reporting a white cell count 17.7 with an absolute lymphocyte count of 15,930. Prognosis: BERRIOS stage I High-risk markers includes deletion p53. First-line therapy: Indication was increasing white blood cell count peaking on 04/06/2013 at 45,400. 05/02/2013-08/31/2013. FCR ?5 cycles. Completed 5 cycles of FCR chemotherapy in August 2013. Restaging workup: 09/18/2013. Bone marrow biopsy with aspirate. No evidence microscopic evidence of CLL or flow cytometry. FISH panel for CLL was negative. Specifically no evidence of a 13 every deletion or 17 deletion. Surveillance: 01/31/2014. Peripheral flow cytometry. No evidence of CLL. - Patient Self-Reported Symptoms SR Constitution: Fatigue/Malaise - Additional ROS All systems PM: reviewed and no additional remarkable complaints except as stated Home Medications and Allergies Home Medications Medication Instructions Recorded Confirmed Type CA PANTOTHENATE/FOLIC ACID/VIT 1 tab PO QDAY #0 09/28/12 04/24/18 History (MULTIVITAMIN) Fish Oil (Fish Oil 500 MG Softgel) 500 mg PO QDAY #0 09/28/12 12/19/17 History [B COMPLEX] 1 tab PO Q DAY #0 09/28/12 04/24/18 History [GREEN TEA EXTRACT] 500 iu Q DAY #0 09/28/12 04/24/18 History [BITTERS] 1 tab PO Q DAY #0 05/04/16 04/24/18 History [MUSHROOM SUPPLEMENT] 1 tab PO Q DAY #0 05/04/16 07/25/17 History biotin 5 mg PO Q DAY #0 04/14/17 12/19/17 History varicella-zoster glycoE vacc-AS01B 0.5 ml IM ONCE #1 each 07/25/17 04/24/18 Rx adj(PF) 50 mcg/0.5 mL IM susp, kit Tumeric 1 tab PO QAM 09/28/17 04/24/18 History cholecalciferol (vitamin D3) 4,000 unit PO DAILY 09/28/17 04/24/18 History [Vitamin D3] cranberry juice PO 09/28/17 History lutein 6 mg PO DAILY 09/28/17 04/24/18 History bupropion HCl 100 mg PO DAILY 04/24/18 04/24/18 History bupropion HCl [Wellbutrin SR] 100 mg PO DAILY 04/24/18 04/24/18 History selenium 100 mcg PO DAILY 04/24/18 04/24/18 History Allergies Allergy/AdvReac Type Severity Reaction Status Date / Time fig AdvReac Mild Nausea Uncoded 09/28/17 12:47 Exam Vital signs: Vital Signs Temp Pulse Resp BP Pulse Ox 04/24/18 11:17 98.2 F 62 18 138/82 99 Intake and Output 04/23/18 04/24/18 04/24/18 23:59 07:59 15:59 Other: Weight 64.4 kg Patient Weight 04/25/18 07:59 Weight 64.4 kg Narrative: Constitutional: WDWN, NAD, well groomed, pleasant and cooperative. HEENT: NCAT, EOMI, PERRLA, anicteric sclera. Neck: Supple, No palpable thyromegaly or lymphadenopathy. Respiratory: Clear to auscultation, and no wheezes or rales or rubs. Cardiovascular: RRR, S1 and S2 normal, no M/G/R. No JVD. Abdomen: Soft, NTND, BS normal, no palpable organomegaly, no hernia, no palpable masses. Extremities: No LE pitting edema. Lymphatic: no palpable lymph nodes in the neck, axillae, or groins. Musculoskeletal: normal gait and station Skin: no rashes, no ulcers, no petechiae Neurological: AOx3, CN II-XII grossly intact. No focal motor or sensory deficit. Psychiatric: Good judgment and insight; normal affect; normal thought process; cooperative, no depression, no anxiety. Results - Imaging Additional studies: Procedures Incision with removal of foreign body or device from skin and subcutaneous tissue (11/08/13) Insertion of totally implantable vascular access device [VAD] (04/26/13) Other soft tissue x-ray of chest wall (04/26/13) Assessment and Plan (1) Chronic lymphocytic leukemia Assessment and Plan: Clinically, I do not think there is any evidence to suggest disease recurrence or metastasis as far as CLL is concerned. Patient was asking if she can follow up with her primary care provider and see me once a year. I talked with her that I think it is a good idea. But I emphasized that she has to follow up with her primary care provider during the interim to check the blood counts and make sure that there is no continued decreasing of the lymphocytes. I will schedule the patient to come back to see me in a year with l aboratory tests including CBC, CMP, LDH, beta 2 microglobulin, immunoglobulin quantitative. (2) Lymphopenia Assessment and Plan: Likely related to treatment with FCR. Clinically there is no evidence of disease recurrence as far as the CLL is concerned. I talked with the patient that we need to continue to monitor closely. Patient voiced understanding. (3) Healthcare maintenance Assessment and Plan: Patient said that she has already scheduled health maintenance to see her primary care provider in July of this year. I talked with the patient that she needs to get mammogram once a year given her family history of breast cancer. In addition patient should follow up with her primary care provider regarding the colonoscopy follow-up.
--- NOTE | 2019-04-23 13:45 | ONC.PN ---
PN -Subjective Interval history: ID/CC: 74 year old with CLL Onological History: Clinical presentation: 05/16/2012. Low-grade fatigue. CBC showed WBC 17.7 with an absolute lymphocyte count of 15,930. Diagnosis: 06/01/2012. Bone marrow biopsy. Pathology reporting extensive (70%) marrow involvement with CD20 positive B-cell distributed no focal sheet like proliferation pattern. Molecular study showing negativity for cyclin D1 and BCL 6. Fish identifying a deletion 13q, loss of p53. Flow cytometry from aspirate identifying a B-cell population positive for CD5 (very little), CD10, CD19, CD20 (moderate) and FMC 7 with lambda light chain restriction. Negative for CD23 and CD38. Pre-chemotehrpay clinical staging: CT on 06/21/2012: No pathologically enlarged lymph nodes. A nonspecific hilar lymph node was identified measuring 5 mm. Incidental hepatic steatosis noted. Prognosis: BERRIOS stage I. High-risk markers includes deletion p53. First-line therapy: Indication was increasing white blood cell count peaking on 04/06/2013 at 45,400. FCR ?5 cycles. Completed 5 cycles of FCR chemotherapy from 05/02/2013-08/31/2013. Restaging workup: 09/18/2013. Bone marrow biopsy with aspirate. No evidence microscopic evidence of CLL or flow cytometry. FISH panel for CLL was negative. Specifically no evidence of a 13 every deletion or 17 deletion. Interim Events: Patient clinically has been generally doing well. Patient just retired. She denies any fatigue. She denies nausea or vomiting. She denies shortness of breath or chest pain. She denies any new lymph nodes enlargement. She denies abdominal pain diarrhea or constipation. - Patient Self-Reported Symptoms SR Constitution: Fatigue/Malaise - Additional ROS All systems PM: reviewed and no additional remarkable complaints except as stated Home Medications and Allergies Home Medications Medication Instructions Recorded Confirmed Type CA PANTOTHENATE/FOLIC ACID/VIT 1 tab PO QDAY #0 09/28/12 04/23/19 History (MULTIVITAMIN) Fish Oil (Fish Oil 500 MG Softgel) 500 mg PO QDAY #0 09/28/12 04/23/19 History [B COMPLEX] 1 tab PO Q DAY #0 09/28/12 04/23/19 History [GREEN TEA EXTRACT] 500 iu Q DAY #0 09/28/12 04/23/19 History [MUSHROOM SUPPLEMENT] 1 tab PO Q DAY #0 05/04/16 04/23/19 History biotin 5 mg PO Q DAY #0 04/14/17 04/23/19 History Tumeric 1 tab PO QAM 09/28/17 04/23/19 History cholecalciferol (vitamin D3) 4,000 unit PO DAILY 09/28/17 04/23/19 History [Vitamin D3] cranberry juice 1 tab PO DAILY 09/28/17 04/23/19 History lutein 6 mg PO DAILY 09/28/17 04/23/19 History bupropion HCl [Wellbutrin SR] 100 mg PO DAILY 04/24/18 04/23/19 History Sea Kelp 150 mcg DAILY 04/23/19 04/23/19 History calcium carbonate [Calcium 600] 600 mg DAILY 04/23/19 04/23/19 History milk thistle 150 mg DAILY 04/23/19 04/23/19 History omega-3 fatty acids [Fish Oil 3,000 mg PO DAILY 04/23/19 04/23/19 History Concentrate] Allergies Allergy/AdvReac Type Severity Reaction Status Date / Time fig AdvReac Mild Nausea Uncoded 07/26/18 08:56 Exam Vital signs: 04/23/19 13:50 Last Vital Signs Temp 98.3 F 04/23/19 13:49 Pulse 80 04/23/19 13:49 Resp 18 04/23/19 13:49 BP 133/72 04/23/19 13:49 Pulse Ox 98 04/23/19 13:49 Narrative: ECOG 1 Gen: WDWN, NAD, pleasant and cooperative. HEENT: NCAT, EOMI, PERRLA, anicteric sclera. Neck: Supple, No palpable thyromegaly or lymphadenopathy. Respiratory: CTAB, no wheezes audible. No JVD Cardiovascular: RRR, S1 and S2 normal, no M/G/R. Abdomen: Soft, NTND, BS normal, no palpable organomegaly Extremities: No LE pitting edema. Lymphatic: no palpable lymph nodes in the neck, axillae Neurological: AOx3, CN II-XII grossly intact. No focal motor or sensory deficit. Psychiatric: Good judgment and insight; normal affect; normal thought process; no depression, no anxiety. Results - Labs WBC 3.7, hemoglobin 14.0, hematocrit 40.8%, platelets 195, absolute lymphocyte count 600. - Imaging Additional studies: Procedures Incision with removal of foreign body or device from skin and subcutaneous tissue (11/08/13) Insertion of totally implantable vascular access device [VAD] (04/26/13) Other soft tissue x-ray of chest wall (04/26/13) Assessment and Plan (1) Chronic lymphocytic leukemia Overview: The patient is a 74 year old female with diagnosis of CLL p53 mutation positive, status post FCR x 5 cycles in August 2013. Assessment Clinically, patient has been doing well. I reviewed the lab results the CBC has remained the same. I will continue current active surveillance. Plan: RTC in one year, CBC, CMP. (2) Lymphopenia Likely related to treatment with FCR. Clinically there is no evidence of disease recurrence as far as the CLL is concerned. I talked with the patient that we need to continue to monitor closely. Patient voiced understanding.
[2019-04-23 13:49] VITALS: BP 133/72; PULSE 80; RESP 18; TEMP 36.8; O2SAT 98
[2020-03-11 13:22] LABS: Add Manual Diff / Slide Review NO; Basophils Absolute Auto 0 /uL (0-100); Basophils Percent Auto 0.6 % (0-2); Eosinophils Absolute Auto 0 /uL (0-450); Eosinophils Percent Auto 1.3 % (2-4); Hematocrit 39.7 % (36-46); Hemoglobin 13.2 g/dL (12.0-16.0); Lymphocytes Absolute Auto 900 /uL (1100-4500); Lymphocytes Percent Auto 26.7 % (25-40); Mean Corpuscular HGB Conc 33.2 % (30-36); Mean Corpuscular Hemoglobin 31.7 PG (26-34); Mean Corpuscular Volume 95.6 fL (80-100); Monocytes Absolute Auto 200 /uL (0-900); Monocytes Percent Auto 6.6 % (3-14); Neutrophils Absolute Auto 2300 /uL (1500-7000); Neutrophils Percent Auto 64.8 % (50-75); Platelet Count 190 X10^3/uL (150-400); Red Blood Cell Count 4.15 X10^6/uL (4.0-5.2); Red Cell Distribution Width 12.9 % (11.6-14.8); White Blood Cell Count 3.6 X10^3/uL (4.5-11.0)
[2020-03-11 13:31] LABS: Alanine Aminotransferase 35 IU/L (<35); Albumin 4.4 g/dL (3.5-5.0); Albumin Globulin Ratio 1.5 (1.0-2.8); Alkaline Phosphatase 55 U/L (38-126); Aspartate Aminotransferase 37 IU/L (14-36); BUN Creatinine Ratio 30.1 (6-22); Bilirubin Total 0.3 mg/dL (0.2-1.3); Blood Urea Nitrogen 22 mg/dL (7-17); Calcium 9.4 mg/dL (8.4-10.2); Carbon Dioxide 30 mmol/L (22-32); Chloride 104 mmol/L (98-107); Estimated Glomerular Filt Rate > 60.0 mL/min (>60); Globulin 2.9 g/dL (1.7-4.1); Glucose 119 mg/dL (80-110); HEMOLYSIS < 15 (0-50); Potassium 3.7 mmol/L (3.4-5.1); Sodium 138 mmol/L (137-145); Total Protein 7.3 g/dL (6.3-8.2)
[2020-03-20 11:24] VITALS: BP 141/79; PULSE 61; RESP 18; TEMP 37.2; O2SAT 98
--- NOTE | 2020-03-20 11:32 | ONC.PN ---
PN -Subjective Interval history: ID/CC: 75 year old with CLL Onological History: Clinical presentation: 05/16/2012. Low-grade fatigue. CBC showed WBC 17.7 with an absolute lymphocyte count of 15,930. Diagnosis: 06/01/2012. Bone marrow biopsy. Pathology reporting extensive (70%) marrow involvement with CD20 positive B-cell distributed no focal sheet like proliferation pattern. Molecular study showing negativity for cyclin D1 and BCL 6. Fish identifying a deletion 13q, loss of p53. Flow cytometry from aspirate identifying a B-cell population positive for CD5 (very little), CD10, CD19, CD20 (moderate) and FMC 7 with lambda light chain restriction. Negative for CD23 and CD38. Pre-chemotehrpay clinical staging: CT on 06/21/2012: No pathologically enlarged lymph nodes. A nonspecific hilar lymph node was identified measuring 5 mm. Incidental hepatic steatosis noted. Prognosis: BERRIOS stage I. High-risk markers includes deletion p53. First-line therapy: Indication was increasing white blood cell count peaking on 04/06/2013 at 45,400. FCR ?5 cycles. Completed 5 cycles of FCR chemotherapy from 05/02/2013-08/31/2013. Restaging workup: 09/18/2013. Bone marrow biopsy with aspirate. No evidence microscopic evidence of CLL or flow cytometry. FISH panel for CLL was negative. Specifically no evidence of a 13 every deletion or 17 deletion. Interim Events: Patient clinically has been generally doing well. Patient just retired. She denies any fatigue. She denies nausea or vomiting. She denies shortness of breath or chest pain. She denies any new lymph nodes enlargement. She denies abdominal pain diarrhea or constipation. - Patient Self-Reported Symptoms SR Constitution: Fatigue/Malaise - Additional ROS All systems PM: reviewed and no additional remarkable complaints except as stated Home Medications and Allergies Home Medications Medication Instructions Recorded Confirmed Type CA PANTOTHENATE/FOLIC ACID/VIT 1 tab PO QDAY #0 09/28/12 03/20/20 History (MULTIVITAMIN) Fish Oil (Fish Oil 500 MG Softgel) 500 mg PO QDAY #0 09/28/12 03/20/20 History [B COMPLEX] 1 tab PO Q DAY #0 09/28/12 03/20/20 History [GREEN TEA EXTRACT] 500 iu Q DAY #0 09/28/12 03/20/20 History [MUSHROOM SUPPLEMENT] 1 tab PO Q DAY #0 05/04/16 03/20/20 History biotin 5 mg PO Q DAY #0 04/14/17 03/20/20 History Tumeric 1 tab PO QAM 09/28/17 03/20/20 History cholecalciferol (vitamin D3) 4,000 unit PO DAILY 09/28/17 03/20/20 History [Vitamin D3] cranberry juice 1 tab PO DAILY 09/28/17 03/20/20 History lutein 6 mg PO DAILY 09/28/17 03/20/20 History bupropion HCl [Wellbutrin SR] 150 mg PO DAILY 04/24/18 03/20/20 History Sea Kelp 150 mcg DAILY 04/23/19 03/20/20 History calcium carbonate [Calcium 600] 600 mg DAILY 04/23/19 03/20/20 History milk thistle 150 mg DAILY 04/23/19 03/20/20 History omega-3 fatty acids [Fish Oil 3,000 mg PO DAILY 04/23/19 03/20/20 History Concentrate] losartan 25 mg PO DAILY 03/20/20 03/20/20 History Allergies Allergy/AdvReac Type Severity Reaction Status Date / Time fig AdvReac Mild Nausea Uncoded 07/26/18 08:56 Exam Vital signs: Vital Signs Temp Pulse Resp BP Pulse Ox 03/20/20 11:24 98.9 F 61 18 141/79 H 98 Intake and Output 03/19/20 03/20/20 03/20/20 23:59 07:59 15:59 Other: Weight 65.5 kg Patient Weight 03/20/20 23:59 Weight 65.5 kg Narrative: ECOG 1 Gen: WDWN, NAD, pleasant and cooperative. HEENT: NCAT, EOMI, PERRLA, anicteric sclera. Neck: Supple, No palpable thyromegaly or lymphadenopathy. Respiratory: CTAB, no wheezes audible. No JVD Cardiovascular: RRR, S1 and S2 normal, no M/G/R. Abdomen: Soft, NTND, BS normal, no palpable organomegaly Extremities: No LE pitting edema. Lymphatic: no palpable lymph nodes in the neck, axillae Neurological: AOx3, CN II-XII grossly intact. No focal motor or sensory deficit. Psychiatric: Good judgment and insight; normal affect; normal thought process; no depression, no anxiety. Results - Labs Laboratory Last Values WBC 3.6 X10^3/uL (4.5-11.0) L 03/11/20 13:09 RBC 4.15 X10^6/uL (4.0-5.2) 03/11/20 13:09 Hgb 13.2 g/dL (12.0-16.0) 03/11/20 13:09 Hct 39.7 % (36-46) 03/11/20 13:09 MCV 95.6 fL (80-100) 03/11/20 13:09 MCH 31.7 PG (26-34) 03/11/20 13:09 MCHC 33.2 % (30-36) 03/11/20 13:09 RDW 12.9 % (11.6-14.8) 03/11/20 13:09 Plt Count 190 X10^3/uL (150-400) 03/11/20 13:09 Neut % (Auto) 64.8 % (50-75) 03/11/20 13:09 Lymph % (Auto) 26.7 % (25-40) 03/11/20 13:09 [place] % (Auto) 6.6 % (3-14) 03/11/20 13:09 Eos % (Auto) 1.3 % (2-4) L 03/11/20 13:09 Baso % (Auto) 0.6 % (0-2) 03/11/20 13:09 Neut # (Auto) 2300 /uL (7132-2808) 03/11/20 13:09 Lymph # (Auto) 900 /uL (5907-6441) L 03/11/20 13:09 [place] # (Auto) 200 /uL (0-900) 03/11/20 13:09 Eos # (Auto) 0 /uL (0-450) 03/11/20 13:09 Baso # (Auto) 0 /uL (0-100) 03/11/20 13:09 Sodium 138 mmol/L (137-145) 03/11/20 13:09 Potassium 3.7 mmol/L (3.4-5.1) 03/11/20 13:09 Chloride 104 mmol/L (98-107) 03/11/20 13:09 Carbon Dioxide 30 mmol/L (22-32) 03/11/20 13:09 BUN 22 mg/dL (7-17) H 03/11/20 13:09 Creatinine 0.73 mg/dL (0.52-1.04) 03/11/20 13:09 Estimated GFR > 60.0 mL/min (>60) 03/11/20 13:09 BUN/Creatinine Ratio 30.1 (6-22) H 03/11/20 13:09 Glucose 119 mg/dL (80-110) H 03/11/20 13:09 Calcium 9.4 mg/dL (8.4-10.2) 03/11/20 13:09 Total Bilirubin 0.3 mg/dL (0.2-1.3) 03/11/20 13:09 AST 37 IU/L (14-36) H 03/11/20 13:09 ALT 35 IU/L (<35) H 03/11/20 13:09 Alkaline Phosphatase 55 U/L (38-126) 03/11/20 13:09 Total Protein 7.3 g/dL (6.3-8.2) 03/11/20 13:09 Albumin 4.4 g/dL (3.5-5.0) 03/11/20 13:09 Globulin 2.9 g/dL (1.7-4.1) 03/11/20 13:09 Albumin/Globulin Ratio 1.5 (1.0-2.8) 03/11/20 13:09 - Imaging Additional studies: Procedures Incision with removal of foreign body or device from skin and subcutaneous tissue (11/08/13) Insertion of totally implantable vascular access device [VAD] (04/26/13) Other soft tissue x-ray of chest wall (04/26/13) Assessment and Plan (1) Chronic lymphocytic leukemia Overview: The patient is a 75 year old female with diagnosis of CLL p53 mutation positive, status post FCR x 5 cycles in August 2013. Assessment Clinically, patient has been doing well. I do not think there is any evidence of disease. Patient was asking if it will be okay for her to follow up with her primary care provider and if needed come back to see me. I talked with her that it would be perfect. Plan: F/u with Dr. Haily Hendrix RTC PRN. (2) Lymphopenia Likely related to treatment with FCR. Clinically there is no evidence of disease recurrence as far as the CLL is concerned. I talked with the patient that we need to continue to monitor closely. Patient voiced understanding.
== END ==
PROVIDERS: Family Provider Family Medicine; PCP Family Medicine; Visit Provider Internal Medicine Hematology & Oncology
DX: C91.11 Chronic lymphocytic leukemia of B-cell type in remission (principal)
CPT/HCPCS: 0011A; 36415; 80053; 85025; 91301; 99214; 99215

== ENCOUNTER → 2020-04-08 13:38 | Outpatient (CLI) | payer MEDICARE, SELFPAY ==
[2020-04-08] MEDS: COVID-19 VACC #2, MRNA(MOD) 100 MCG/0.5 ML VIAL IM (13:45)
== END ==
PROVIDERS: PCP Family Medicine; Visit Provider Internal Medicine
DX: Z23 Encounter for immunization (principal)
CPT/HCPCS: 0012A; 91301

== ENCOUNTER → 2020-08-25 08:54 | Outpatient (CLI) | payer OTHER, SELFPAY ==
[2020-08-25 10:46] LABS: Add Manual Diff / Slide Review NO; Basophils Absolute Auto 0 /uL (0-100); Basophils Percent Auto 0.4 % (0-2); Eosinophils Absolute Auto 100 /uL (0-450); Eosinophils Percent Auto 1.5 % (2-4); Hematocrit 38.8 % (36-46); Lymphocytes Absolute Auto 700 /uL (1100-4500); Lymphocytes Percent Auto 18.2 % (25-40); Mean Corpuscular HGB Conc 33.5 % (30-36); Mean Corpuscular Volume 95.4 fL (80-100); Monocytes Absolute Auto 300 /uL (0-900); Monocytes Percent Auto 8.2 % (3-14); Neutrophils Absolute Auto 2900 /uL (1500-7000); Neutrophils Percent Auto 71.7 % (50-75); Platelet Count 186 X10^3/uL (150-400); Red Blood Cell Count 4.07 X10^6/uL (4.0-5.2); Red Cell Distribution Width 13.1 % (11.6-14.8); White Blood Cell Count 4.1 X10^3/uL (4.5-11.0)
[2020-08-25 11:12] LABS: Alanine Aminotransferase 35 IU/L (<35); Albumin 4.3 g/dL (3.5-5.0); Albumin Globulin Ratio 1.5 (1.0-2.8); Alkaline Phosphatase 52 U/L (38-126); Aspartate Aminotransferase 39 IU/L (14-36); BUN Creatinine Ratio 24.3 (6-22); Bilirubin Total 0.4 mg/dL (0.2-1.3); Blood Urea Nitrogen 17 mg/dL (7-17); Calcium 9.6 mg/dL (8.4-10.2); Carbon Dioxide 29 mmol/L (22-32); Chloride 106 mmol/L (98-107); Cholesterol 173 mg/dL (140-199); Estimated Glomerular Filt Rate > 60.0 mL/min (>60); Globulin 2.9 g/dL (1.7-4.1); Glucose 92 mg/dL (80-110); HDL Cholesterol 66 mg/dL (40-60); HEMOLYSIS < 15 (0-50); LDL Cholesterol Calculated 94 mg/dL (<100); Potassium 4.5 mmol/L (3.4-5.1); Sodium 140 mmol/L (137-145); Total Protein 7.2 g/dL (6.3-8.2); Triglycerides 65 mg/dL (35-150)
== END ==
PROVIDERS: PCP Family Medicine; Referring Provider Family Medicine; Visit Provider Family Medicine
DX: E78.5 Hyperlipidemia, unspecified (principal)
CPT/HCPCS: 36415; 80053; 80061; 85025

== ENCOUNTER → 2020-09-03 11:23 | Outpatient (CLI) | payer OTHER, SELFPAY ==
--- NOTE | 2020-09-03 11:26 | DI.MG.S_ITS ---
BILATERAL DIGITAL SCREENING MAMMOGRAM 3D/2D WITH CAD: 09/03/2020 CLINICAL: Routine screening. Family history of breast cancer. Comparison is made to exams dated: 08/20/2019 mammogram, 03/07/2019 mammogram, 08/31/2018 mammogram, and 08/11/2018 mammogram - [facility]. The tissue of both breasts is heterogeneously dense. This may lower the sensitivity of mammography. Current study was also evaluated with a Computer Aided Detection (CAD) system. No significant masses, calcifications, or other findings are seen in either breast. There has been no significant interval change. IMPRESSION: NEGATIVE There is no mammographic evidence of malignancy. A 1 year screening mammogram is recommended. This exam was interpreted at Station ID: [id number]. NOTE: For mammograms, a report in lay terms will be sent to the patient. Approximately 15% of breast malignancies will not be visualized mammographically. In the management of a palpable breast mass, a negative mammogram must not discourage biopsy of a clinically suspicious lesion. Electronically Signed By: Francis hinds/amarilys:09/03/2020 11:54:48 letter sent: Normal Exam ACR BI-RADS Category 1: Negative 3341F
== END ==
PROVIDERS: PCP Family Medicine; Referring Provider Family Medicine; Visit Provider Family Medicine
DX: Z12.31 Encounter for screening mammogram for malignant neoplasm of breast (principal); Z80.3 Family history of malignant neoplasm of breast
CPT/HCPCS: 77063; 77067

== ENCOUNTER → 2020-12-26 09:07 | Outpatient (CLI) | payer MEDICARE, SELFPAY ==
[2020-12-26] MEDS: COVID-19 VACC #3, MRNA(MOD) 50 MCG/0.25 ML VIAL IM (09:15)
== END ==
PROVIDERS: PCP Family Medicine; Visit Provider Internal Medicine
DX: Z23 Encounter for immunization (principal)
CPT/HCPCS: 0013A; 91301

== ENCOUNTER → 2021-01-26 09:13 | Outpatient (CLI) | payer OTHER, SELFPAY ==
--- NOTE | 2021-01-26 | DI.RAD.S_ITS ---
PROCEDURE: XR DEXA AXIAL SKELETON INDICATIONS: Age-related osteoporosis without current pathologi COMPARISON: [facility], CR, XR DEXA AXIAL SKELETON, 08/11/2018, 12:56. FINDINGS: This blank DEXA report has been sent in error by the PACS system. The correct and complete report will be forthcoming in 1-2 days. Thank you for your patience and understanding. Dictated by: Savannah Morales MD, PhD on 01/26/2021 at 17:14 Approved by: Savannah Morales MD, PhD on 01/26/2021 at 17:14
== END ==
PROVIDERS: PCP Family Medicine; Referring Provider Family Medicine; Visit Provider Family Medicine
DX: M85.851 Other specified disorders of bone density and structure, right thigh (principal); C95.90 Leukemia, unspecified not having achieved remission; Z78.0 Asymptomatic menopausal state; Z87.891 Personal history of nicotine dependence
CPT/HCPCS: 77080

== ENCOUNTER → 2021-11-11 08:30 | Outpatient (CLI) | payer OTHER, SELFPAY ==
--- NOTE | 2021-11-11 | DI.MG.S_ITS ---
BILATERAL DIGITAL SCREENING MAMMOGRAM 3D/2D WITH CAD: 11/11/2021 CLINICAL: Routine screening. Family history of breast cancer. Comparison is made to exams dated: 09/03/2020 mammogram, 08/20/2019 mammogram, 08/11/2018 mammogram, and 01/26/2017 mammogram - [facility]. Both breasts are heterogeneously dense, which may obscure small masses (category c / 51-75% glandular tissue). Current study was also evaluated with a Computer Aided Detection (CAD) system. There are benign post operative findings in the left breast. No significant masses, calcifications, or other findings are seen in either breast. There has been no significant interval change. IMPRESSION: BENIGN There is no mammographic evidence of malignancy. A 1 year screening mammogram is recommended. Based on the Tyrer Cuzick model (a risk assessment model) the patient's lifetime risk is 12.0% and her 10 year risk is 12.0%. According to the ACR, ACS, and NCCN guidelines, an annual breast MRI exam along with mammogram is recommended if the patient's lifetime risk is 20% or greater. This exam was interpreted at Station ID: [id number]. NOTE: For mammograms, a report in lay terms will be sent to the patient. Approximately 15% of breast malignancies will not be visualized mammographically. In the management of a palpable breast mass, a negative mammogram must not discourage biopsy of a clinically suspicious lesion. Electronically Signed By: Antonio kent/amarilys:11/11/2021 14:48:35 letter sent: Normal Exam ACR BI-RADS Category 2: Benign Finding(s) 3342F
== END ==
PROVIDERS: PCP Family Medicine; Referring Provider Family Medicine; Visit Provider Family Medicine
DX: Z12.31 Encounter for screening mammogram for malignant neoplasm of breast (principal); Z80.3 Family history of malignant neoplasm of breast
CPT/HCPCS: 77063; 77067

== ENCOUNTER → 2022-07-08 11:22 | Outpatient (CLI) | payer OTHER, SELFPAY ==
--- NOTE | 2022-07-08 | DI.RAD.S_ITS ---
PROCEDURE: XR KNEE RT 3V INDICATIONS: KNEE PAIN TECHNIQUE: 3 views of the knee were acquired. COMPARISON: None. FINDINGS: Bones: No fractures or dislocations. No suspicious bony lesions. There are small intercondylar osteophytes. There are small lateral femorotibial compartment osteophytes. Soft tissues: No joint effusion. No suspicious soft tissue calcifications. IMPRESSION: Mild to moderate degenerative change. Dictated by: Annette Garza M.D. on 07/08/2022 at 15:43 Approved by: Annette Garza M.D. on 07/08/2022 at 15:44
--- NOTE | 2022-07-08 | DI.RAD.S_ITS ---
PROCEDURE: XR KNEE LT 3V INDICATIONS: KNEE PAIN TECHNIQUE: 3 views of the knee were acquired. COMPARISON: None. FINDINGS: Bones: No fractures or dislocations. No suspicious bony lesions. There are small intercondylar osteophytes. Soft tissues: No joint effusion. No suspicious soft tissue calcifications. IMPRESSION: Mild degenerative change. Dictated by: Annette Garza M.D. on 07/08/2022 at 15:43 Approved by: Annette Garza M.D. on 07/08/2022 at 15:43
== END ==
PROVIDERS: PCP Family Medicine; Referring Provider Family Medicine; Visit Provider Family Medicine
DX: M25.562 Pain in left knee (principal)
CPT/HCPCS: 73562

== ENCOUNTER → 2023-02-10 10:48 | Outpatient (CLI) | payer OTHER, SELFPAY ==
--- NOTE | 2023-02-10 | DI.RAD.S_ITS ---
Bone Density Report Name: NORA ROUSSEAU Age: 77 Sex: Female Ethnicity: White Date of : 1945 Indication: postmenopausal; screening for osteoporosis; Referring Provider: FABY DEMPSEY Study: Bone densitometry was performed. Exam Date: February 10, 2023 Accession number: [id number] Bone Density: Region BMD T-score Z-score Classification AP Spine(L1-L4) 0.973 -0.7 1.8 Normal Femoral Neck (Left) 0.700 -1.3 0.8 Osteopenia Total Hip (Left) 0.883 -0.5 1.4 Normal Femoral Neck (Right) 0.663 -1.7 0.5 Osteopenia Total Hip (Right) 0.856 -0.7 1.2 Normal Total Hip Mean 0.869 -0.6 1.3 Normal World Health Organization criteria for BMD impression classify patients as: Normal (T-score at or above -1.0), Osteopenia (T-score between -1.0 and -2.5), or Osteoporosis (T-score at or below -2.5). 10-year Fracture Risk(1): Major Osteoporotic Fracture 13% Hip Fracture 2.9% Reported Risk Factors: [place] (), Neck BMD=0.663, BMI=25.6 (1) FRAX(R) Version 3.08. Fracture probability calculated for an untreated patient. Fracture probability may be lower if the patient has received treatment. Previous Exams: -- Region Exam Age BMD T-score BMD Change BMD Change Date g/cm2 vs Baseline vs Previous -- AP Spine (L1-L4) 02/10/2023 77 0.973 -0.7 -0.068 (-6.6%)# -0.061 (-5.9%)# 01/26/2021 75 1.034 -0.1 -0.008 (-0.8%) -0.011 (-1.1%) 08/11/2018 73 1.045 0.0 0.004 (0.3%) 0.004 (0.3%) 04/06/2007 62 1.041 -0.1 Total Hip(Left) 02/10/2023 77 0.883 -0.5 -0.132 (-13.0%)# -0.046 (-5.0%)# 01/26/2021 75 0.929 -0.1 -0.086 (-8.4%)* 0.010 (1.0%) 08/11/2018 73 0.919 -0.2 -0.095 (-9.4%)* -0.095 (-9.4%)* 04/06/2007 62 1.015 0.6 Total Hip(Right) 02/10/2023 77 0.856 -0.7 -0.142 (-14.3%)# -0.058 (-6.4%)# 01/26/2021 75 0.914 -0.2 -0.084 (-8.4%)* -0.003 (-0.4%) 08/11/2018 73 0.918 -0.2 -0.080 (-8.1%)* -0.080 (-8.1%)* 04/06/2007 62 0.998 0.5 -- *Denotes significance at 95% confidence level, LSC for AP Spine = 0.022 g/cm2, LSC for Total Hip = 0.027 g/cm2 # Denotes dissimilar scan types or analysis methods Impression: The patient has low bone mass, based on the Right Femoral Neck T-score. The patient has an estimated ten-year risk of hip fracture of 2.9% and an estimated ten-year risk of major fracture of 13%, based on the WHO FRAX algorithm. No significant bone loss was observed. Discussion: BONE DENSITY IS LOW AT ONE OR MORE SKELETAL SITES. This patient's lowest T-score is low at one or more skeletal sites. It meets the World Health Organization's (WHO) criteria for low bone mass (T-score between -1.0 and -2.5). The patient's 10-year risk of fracture as calculated by FRAX is less than the threshold where pharmacological therapy is recommended by the National Osteoporosis Foundation (NOF). However, all treatment decisions require clinical judgment and consideration of individual patient factors, including patient preferences, comorbidities, previous drug use, risk factors not captured in the FRAX model (e.g., frailty, falls, vitamin D deficiency, increased bone turnover, interval significant decline in bone density) and possible under or overestimation of fracture risk by FRAX. The patient should follow a healthful lifestyle (good nutrition with adequate calcium and vitamin D, and appropriate weight-bearing exercise). Follow-Up: Consider repeating this study in 2 to 3 years to reassess this patient's status, or sooner if there is some new clinical indication. Reported by: ANILA ZHU M.D. on 02/10/2023 11:20:00 AM.
== END ==
PROVIDERS: PCP Family Medicine; Referring Provider Family Medicine; Visit Provider Family Medicine
DX: Z78.0 Asymptomatic menopausal state (principal); M85.851 Other specified disorders of bone density and structure, right thigh
CPT/HCPCS: 77080

== ENCOUNTER → 2023-03-01 12:51 | Outpatient (CLI) | payer OTHER, SELFPAY ==
--- NOTE | 2023-03-01 12:53 | DI.MG.S_ITS ---
BILATERAL DIGITAL SCREENING MAMMOGRAM 3D/2D WITH CAD: 03/01/2023 CLINICAL: Routine screening. Family history of breast cancer. Comparison is made to exams dated: 11/11/2021 mammogram, 09/03/2020 mammogram, and 08/20/2019 mammogram - [facility]. Both breasts are heterogeneously dense, which may obscure small masses (category c / 51-75% glandular tissue). Current study was also evaluated with a Computer Aided Detection (CAD) system. There are benign post operative findings in the left breast. No significant masses, calcifications, or other findings are seen in either breast. There has been no significant interval change. IMPRESSION: BENIGN There is no mammographic evidence of malignancy. A 1 year screening mammogram is recommended. Based on the Tyrer Cuzick model (a risk assessment model) the patient's lifetime risk is 10.0% and her 10 year risk is 0.0%. According to the ACR, ACS, and NCCN guidelines, an annual breast MRI exam along with mammogram is recommended if the patient's lifetime risk is 20% or greater. This exam was interpreted at Station ID: [id number]. NOTE: For mammograms, a report in lay terms will be sent to the patient. Approximately 15% of breast malignancies will not be visualized mammographically. In the management of a palpable breast mass, a negative mammogram must not discourage biopsy of a clinically suspicious lesion. Electronically Signed By: Olaf paredes/amarilys:03/01/2023 17:33:34 letter sent: Normal Exam ACR BI-RADS Category 2: Benign Finding(s) 3342F
== END ==
LOC: MAMMO 12:52
PROVIDERS: PCP Family Medicine; Referring Provider Family Medicine; Visit Provider Family Medicine
DX: Z12.31 Encounter for screening mammogram for malignant neoplasm of breast (principal); Z80.3 Family history of malignant neoplasm of breast; R92.333 Mammographic heterogeneous density, bilateral breasts
CPT/HCPCS: 77063; 77067

== ENCOUNTER → 2023-04-14 13:53 | Outpatient (CLI) | payer OTHER, SELFPAY ==
--- NOTE | 2023-04-14 | DI.ECHO.S_ITS ---
[place] [facility]---------+ [facility] +---------+ : : [address] : [place] : : : : [id number] : : : : Phone: [phone]+ Echocardiogram Report + + :Name: NORA ROUSSEAU Study Date: 04/14/2023 Height: 62 in : :[facility] ReadingLocation: Weight: 140 lb : : Gender: Female BSA: 1.6 m2 : :: 1945 Age: 78 yrs BP: 127/78 mmHg: :Reason For Study: PALPITATIONS, TACHYCARDIA : :Ordering Physician: KE, : :FABY Performed By: Jaun Mendoza : :Referring: FABY DEMPSEY : + + Interpretation Summary The left ventricular ejection fraction is normal. There is no significant valvular heart disease. Procedure: A two-dimensional transthoracic echocardiogram with color flow and Doppler was performed. The study quality was technically adequate. There is no prior echocardiogram noted for this patient. The patient was in normal sinus rhythm during the exam. The heart rate ranged between 58-74 bpm during the study. Left Ventricle: The left ventricle is normal in size and wall thickness. The ejection fraction is estimated to be 60-65%. The left ventricular ejection fraction is normal. Right Ventricle: The right ventricle is normal in size and function. The right ventricular systolic function is normal. Atria: The left atrial size is normal. Right atrial size is normal. Mitral Valve: The mitral valve is normal in structure and function. There is no mitral valve stenosis. There is trace mitral regurgitation. Aortic Valve: The aortic valve is trileaflet. There is no aortic valve stenosis. No aortic regurgitation is present. Tricuspid Valve: The tricuspid valve is normal in structure and function. There is no tricuspid stenosis. There is mild tricuspid regurgitation. The right ventricular systolic pressure is estimated to be at least 28 mmHg based on an estimated right atrial pressure of 3 mm Hg. Pulmonic Valve: The pulmonic valve is not well visualized. There is no pulmonic valvular stenosis. There is no pulmonic valvular regurgitation. Great Vessels: The aortic root is normal size. The dimensions of the ascending aorta are normal. The IVC is of normal diameter and collapses greater than 50% with a sniff. This suggests a low right atrial pressure of 3 mm Hg. Pericardium/ Pleura There is no pericardial effusion. There is no pleural effusion. MMode/2D Measurements & Calculations LVIDd: 4.4 cm LVOT diam: 1.9 cm LVIDs: 2.7 cm Ao root diam: 2.8 cm FS: 37.6 % asc Aorta Diam: 2.6 cm IVSd: 1.2 cm Ao Arch Diam (Prox Trans): 2.7 cm LVPWd: 0.83 cm LV villatoro. diameter/BSA (cm/m^2): 2.7 LV sys. diameter/BSA (cm/m^2): 1.7 LA A2 area: 17.3 cm2 RA long axis: 4.3 cm LA A4 area: 18.6 cm2 RA area: 12.4 cm2 LA length (vol): 5.2 cm RA vol: 30.4 ml LA vol: 52.8 ml RA : 18.5 ml/m2 LA vol index: 32.1 ml/m2 IVC diam: 1.7 cm RVD1 (basal): 2.7 cm RVD2 (mid): 2.5 cm TAPSE: 2.1 cm Doppler Measurements & Calculations Ao V2 max: 158.2 cm/sec LVOT Max Kelton: 104.3 cm/sec Ao V2 mean: 105.6 cm/sec LV V1 max P.4 mmHg Ao max P.0 mmHg LV V1 VTI: 25.9 cm Ao mean P.0 mmHg PIPPA(I,D): 2.0 cm2 Ao V2 VTI: 35.0 cm PIPPA(V,D): 1.8 cm2 sev ratio: 0.74 PIPPA indexed to BSA (cm^2/m^2): 1.2 MV E max kelton: 73.3 cm/sec TR max kelton: 253.0 cm/sec MV A max kelton: 59.8 cm/sec TR max P.6 mmHg MV E/A: 1.2 PA V2 max: 103.2 cm/sec Med Peak E' Kelton: 7.7 cm/sec PA V2 mean: 72.3 cm/sec E/E' med: 9.5 PA mean P.3 mmHg Lat Peak E' Kelton: 8.6 cm/sec PA pr(Accel): 36.2 mmHg E/E' lat: 8.6 E/e' average: 9.0 MV dec time: 0.18 sec SV(LVOT): 70.6 ml Reading Physician:12:30 PM
== END ==
LOC: ECHO 13:54
PROVIDERS: PCP Family Medicine; Referring Provider Family Medicine; Visit Provider Family Medicine
DX: I07.1 Rheumatic tricuspid insufficiency (principal); I47.10 Supraventricular tachycardia, unspecified; R00.2 Palpitations
CPT/HCPCS: 93306

== ENCOUNTER → 2023-04-18 09:45 | Outpatient (CLI) | payer OTHER, SELFPAY ==
[2023-05-08 12:34] LABS: Beta-2-Microglobulin 2.3
== END ==
PROVIDERS: PCP Family Medicine; Referring Provider Internal Medicine Hematology & Oncology; Visit Provider Internal Medicine Hematology & Oncology
DX: C91.10 Chronic lymphocytic leukemia of B-cell type not having achieved remission (principal)
CPT/HCPCS: 36415; 82232